=== PATIENT | female | born 1970 | race Hispanic/Latino ===

== ENCOUNTER 2018-10-22 01:23 | Emergency (ER) | payer BC ==
--- OUTSIDE RECORDS SUMMARY | 2018-10-22 01:25 | XMS REPORT ---
:1970 [facility] Address [address] [place] [address] Care Team Providers Name Role Phone Unavailable Unavailable Unavailable Payers Payer Name Policy Type Policy Number Effective Date Expiration Date Problems This patient has no known problems. Allergies, Adverse Reactions, Alerts Allergy Name Allergy Status Severity Reaction(s) Onset Inactive Treating Comments Type Date Date Clinician hydrocodone DA Active U 2018-05 00:00:0 0 meperidine DA Active U 2018-05 00:00:0 0 Medications This patient has no known medications.
[2018-10-22] MEDS ORDERED: LIDOCAINE JELLY 2%- 5 ML TUBE ONE (02:11)
[2018-10-22] MEDS ORDERED: HYDROMORPHONE HCL 1 MG/ML INJ ONE (02:22)
[2018-10-22 02:52] LABS: Absolute Lymphocytes (CBC) 1.4 K/uL (0.7-4.9); Absolute Monocytes 0.7 K/uL (0.1-1.3); Absolute Neutrophil 7.3 K/uL (1.8-8.0); Basophils % 0.5 % (0-1.3); Eosinophils % 0.7 % (0-4.4); Hematocrit 35.7 % (36.0-45.0); Lymphocytes % 14.6 % (15.3-44.8); MPV 8.6 fL (7.6-11.3); Monocytes % 7.2 % (3.3-12.3); RBC Red Blood Cell Count 4.03 M/uL (3.86-4.86)
[2018-10-22] MEDS ORDERED: NA CHLORIDE 0.9% 1,000 ML ONE (02:52)
[2018-10-22 03:03] LABS: Potassium 3.7 mmol/L (3.5-5.1)
--- NOTE | 2018-10-22 03:15 | EDPHYS ---
Physician Documentation [facility] Name: Kelley Carlos Age: 48 yrs Sex: Female : 1970 Arrival Date: 10/22/2018 Time: 01:26 Bed 13 Private MD: Benji Bella H ED Physician Pramod Cochran HPI: 10/22 03:10 This 48 yrs old Female presents to ER via Ambulatory with complaints of gs Constipation, Rectal Bleeding. 03:10 The patient presents to the emergency department with pain in the rectal area, that is gs severe. Onset: The symptoms/episode began/occurred yesterday. Context: the patient has a known history of hemorrhoids, CONSTIPATION. Modifying factors: The symptoms are alleviated by nothing, The symptoms are aggravated by bowel movement. Associate signs and symptoms: Pertinent positives: lower GI bleeding, on toilet paper. The patient has experienced similar episodes in the past, a few times. Historical: - Allergies: 01:29 Demerol (Vomiting); jb4 01:29 [place] (Vomiting); jb4 - Home Meds: :29 Lorazepam Oral [Active]; jb4 - PMHx: 01:29 Anxiety; HYPOGLYCEMIA; TIA; jb4 - PSHx: :29 Cholecystectomy; left shoulder; gastric sleeve; jb4 - Immunization history:: Adult Immunizations up to date. - Social history:: Smoking status: Patient/guardian denies using tobacco, Patient/guardian denies using alcohol. - Ebola Screening: : No symptoms or risks identified at this time. ROS: 03:10 All other systems are negative. gs Exam: 03:10 Head/Face: Normocephalic, atraumatic. Eyes: Pupils equal round and reactive to light, gs extra-ocular motions intact. Lids and lashes normal. Conjunctiva and sclera are non-icteric and not injected. Cornea within normal limits. Periorbital areas with no swelling, redness, or edema. ENT: Nares patent. No nasal discharge, no septal abnormalities noted. Tympanic membranes are normal and external auditory canals are clear. Oropharynx with no redness, swelling, or masses, exudates, or evidence of obstruction, uvula midline. Mucous membranes moist. 03:10 Neck: Trachea midline, no thyromegaly or masses palpated, and no cervical lymphadenopathy. Supple, full range of motion without nuchal rigidity, or vertebral point tenderness. No Meningismus. Chest/axilla: Normal chest wall appearance and motion. Nontender with no deformity. No lesions are appreciated. Cardiovascular: Regular rate and rhythm with a normal S1 and S2. No gallops, murmurs, or rubs. Normal PMI, no JVD. No pulse deficits. Respiratory: Lungs have equal breath sounds bilaterally, clear to auscultation and percussion. No rales, rhonchi or wheezes noted. No increased work of breathing, no retractions or nasal flaring. Back: No spinal tenderness. No costovertebral tenderness. Full range of motion. Skin: Warm, dry with normal turgor. Normal color with no rashes, no lesions, and no evidence of cellulitis. MS/ Extremity: Pulses equal, no cyanosis. Neurovascular intact. Full, normal range of motion. Neuro: Awake and alert, GCS 15, oriented to person, place, time, and situation. Cranial nerves II-XII grossly intact. Motor strength 5/5 in all extremities. Sensory grossly intact. Cerebellar exam normal. Normal gait. 03:10 Constitutional: The patient appears alert, awake. 03:10 Constitutional: The patient appears uncomfortable. 03:10 Abdomen/GI: Palpation: abdomen is soft and non-tender, in all quadrants, Rectal exam: Stool: normal, hemorrhoid(s), external, with inflammation, with pain, without bleeding, fecal impaction, is not appreciated, the exam is chaperoned by the nurse. Vital Signs: 01:29 BP 141 / 96; Pulse 99; Resp 20; Temp 97.9(O); Pulse Ox 96% on R/A; Weight 82.1 kg (R); jb4 Height 5 ft. 3 in. (160.02 cm) (R); Pain 10/10; 02:58 BP 106 / 73; Pulse 83; Resp 16; Pulse Ox 95% on R/A; jb4 04:00 BP 114 / 75; Pulse 86; Resp 16; Pulse Ox 98% on R/A; jb4 01:29 Body Mass Index 32.06 (82.10 kg, 160.02 cm) jb4 MDM: 02:02 Patient medically screened. 03:10 Differential diagnosis: hemorrhoids. Data reviewed: vital signs, nurses notes. Counseling: I had a detailed discussion with the patient and/or guardian regarding: the historical points, exam findings, and any diagnostic results supporting the discharge/admit diagnosis, lab results, the need for outpatient follow up. Response to treatment: the patient's symptoms have markedly improved after treatment. 10/22 02:12 Order name: CBC with Diff; Complete Time: 03:09 10/22 02:12 Order name: Basic Metabolic Panel; Complete Time: 03:09 Administered Medications: 02:00 Drug: Lidocaine Gel 2 % 1 application {Note: administered rectally by ED physician.} jb4 Route: Mucous Membrane; 02:58 Follow up: Response: No adverse reaction; Pain is decreased jb4 02:18 Drug: Dilaudid 1 mg Route: IM; Site: right gluteus; jb4 02:57 Follow up: Response: No adverse reaction; Pain is decreased jb4 02:57 Drug: NS 0.9% 1000 ml Route: IV; Rate: 1 bolus; Site: right antecubital; jb4 04:05 Follow up: Response: No adverse reaction; IV Status: Completed infusion; IV Intake: jb4 1000ml Disposition: 10/22/18 03:14 Discharged to Home. Impression: Constipation, Perianal venous thrombosis. - Condition is Stable. - Discharge Instructions: Hemorrhoids, Constipation, Adult, [id number]. - Prescriptions for lidocaine HCl- hydrocortison ac 3 %-2.5 % (7 gram) Rectal gel - insert 1 applicatorful by RECTAL route 2 times per day As needed; 14 suppository. Miralax 17 gram/dose Oral - take 1 packet by ORAL route once daily dilute powder in 8 ounces of water or juice; 1 bottle. - Medication Reconciliation Form, Thank You Letter, Antibiotic Education, Prescription Opioid Use form. - Follow up: Private Physician; When: 1 - 2 days; Reason: Re-evaluation by your physician. Signatures: Dispatcher [employer] Saúl Guallpa RN RN jb4 Pramod Cochran MD MD Corrections: (The following items were deleted from the chart) 04:17 03:14 10/22/2018 03:14 Discharged to Home. Impression: Constipation; Perianal venous jb4 thrombosis. Condition is Stable. Forms are Medication Reconciliation Form, Thank You Letter, Antibiotic Education, Prescription Opioid Use. Follow up: Private Physician; When: 1 - 2 days; Reason: Re-evaluation by your physician. gs
--- NOTE | 2018-10-22 03:15 | ER ---
Nurse's Notes [facility] Name: Kelley Carlos Age: 48 yrs Sex: Female : 1970 Arrival Date: 10/22/2018 Time: : Bed 13 Private MD: Benji Bella H Diagnosis: Constipation;Perianal venous thrombosis Presentation: 10/22 01:29 Presenting complaint: Patient states: I have been severely constipated for the past 2 jb4 days, and now I am having rectal bleeding from straining and attempting to self disimpact, and I am having severe rectal pain. : Transition of care: patient was not received from another setting of care. Onset of jb4 symptoms was October 19, 2018. Risk Assessment: Do you want to hurt yourself or someone else? Patient reports no desire to harm self or others. Initial Sepsis Screen: Does the patient meet any 2 criteria? HR > 90 bpm. Yes Does the patient have a suspected source of infection? No. Patient's initial sepsis screen is negative. Care prior to arrival: None. Method Of Arrival: Ambulatory jb4 : Acuity: DRAKE 3 jb4 Triage Assessment: : General: Appears distressed, uncomfortable, Behavior is cooperative, anxious. Pain: jb4 Complains of pain in rectal. Pain does not radiate. Pain currently is 10 out of 10 on a pain scale. Quality of pain is described as Intense, severe Pain began 2-3 days ago. Is continuous. EENT: No signs and/or symptoms were reported regarding the EENT system. Neuro: Level of Consciousness is awake, alert, obeys commands, Oriented to person, place, time, situation. Cardiovascular: Patient's skin is warm and dry. Respiratory: Airway is patent Respiratory effort is even, unlabored, shallow, Respiratory pattern is regular, symmetrical. GI: Reports constipation, rectal bleeding. Patient currently denies abdominal pain, epigastric pain, nausea, vomiting. : No signs and/or symptoms were reported regarding the genitourinary system. Derm: Skin is intact, Skin is dry, Skin is pale, Skin temperature is warm. Musculoskeletal: Circulation, motion, and sensation intact. Historical: - Allergies: Demerol (Vomiting); jb4 [place] (Vomiting); jb4 - Home Meds: : Lorazepam Oral [Active]; 4 - PMHx: : Anxiety; HYPOGLYCEMIA; TIA; 4 - PSHx: : Cholecystectomy; left shoulder; gastric sleeve; jb4 - Immunization history:: Adult Immunizations up to date. - Social history:: Smoking status: Patient/guardian denies using tobacco, Patient/guardian denies using alcohol. - Ebola Screening: : No symptoms or risks identified at this time. Screenin:29 Abuse screen: Denies threats or abuse. Nutritional screening: No deficits noted. [facility] Tuberculosis screening: No symptoms or risk factors identified. Fall Risk Ambulatory Aid- Crutches/Cane/Walker (15 pts). Total Irby Fall Scale indicates No Risk (0-24 pts). Assessment: : General: see triage assessment.. jb4 02:58 Reassessment: Patient appears in no apparent distress at this time. Patient and/or jb4 family updated on plan of care and expected duration. Pain level reassessed. Patient is alert, oriented x 3, equal unlabored respirations, skin warm/dry/pink. Patient states feeling better. 03:31 Reassessment: Waiting for IV fluids to finish prior to discharge. jb4 04:12 Reassessment: Patient appears in no apparent distress at this time. Patient and/or jb4 family updated on plan of care and expected duration. Pain level reassessed. Patient is alert, oriented x 3, equal unlabored respirations, skin warm/dry/pink. PT discharged home with . No s/s of distress noted. Pt wheeled to car in wheel chair. Vital Signs: :29 BP 141 / 96; Pulse 99; Resp 20; Temp 97.9(O); Pulse Ox 96% on R/A; Weight 82.1 kg (R); jb4 Height 5 ft. 3 in. (160.02 cm) (R); Pain 10/10; 02:58 BP 106 / 73; Pulse 83; Resp 16; Pulse Ox 95% on R/A; jb4 04:00 BP 114 / 75; Pulse 86; Resp 16; Pulse Ox 98% on R/A; jb4 01:29 Body Mass Index 32.06 (82.10 kg, 160.02 cm) [facility] ED Course: :26 Patient arrived in ED. es 01:26 Jena YaseminDO Aruna is Private Physician. es 01:29 Arm band placed on left wrist. jb4 01:29 Patient has correct armband on for positive identification. Placed in gown. Bed in low jb4 position. Call light in reach. Side rails up X 1. Pulse ox on. NIBP on. 01:37 Saúl Simental, GRICELDA is Primary Nurse. jb4 01:39 Triage completed. jb4 02:02 Pramod Cochran MD is Attending Physician. gs 02:28 Missed attempt(s): 20 gauge in right antecubital area. 22 gauge in right antecubital jb4 area. 02:30 Initial lab(s) drawn, by me, sent to lab. Inserted saline lock: 20 gauge in left jb4 antecubital area, using aseptic technique. Blood collected. 02:38 IV discontinued, intact, bleeding controlled. jb4 02:42 Inserted saline lock: 20 gauge in right antecubital area, using aseptic technique. jb4 04:00 No provider procedures requiring assistance completed. IV discontinued, intact, jb4 bleeding controlled. Administered Medications: 02:00 Drug: Lidocaine Gel 2 % 1 application {Note: administered rectally by ED physician.} jb4 Route: Mucous Membrane; 02:58 Follow up: Response: No adverse reaction; Pain is decreased jb4 02:18 Drug: Dilaudid 1 mg Route: IM; Site: right gluteus; jb4 02:57 Follow up: Response: No adverse reaction; Pain is decreased jb4 02:57 Drug: NS 0.9% 1000 ml Route: IV; Rate: 1 bolus; Site: right antecubital; jb4 04:05 Follow up: Response: No adverse reaction; IV Status: Completed infusion; IV Intake: jb4 1000ml Intake: 04:05 IV: 1000ml; Total: 1000ml. jb4 Outcome: 03:14 Discharge ordered by . gs 04:16 Discharged to home via wheelchair, with significant other. jb4 04:16 Condition: stable 04:16 Discharge instructions given to patient, significant other, Instructed on discharge instructions, follow up and referral plans. medication usage, Demonstrated understanding of instructions, follow-up care, medications, Prescriptions given X 2. 04:17 Patient left the ED. jb4 Signatures: Violette Juarez James, RN RN jb4 Pramod Cochran MD MD gs Corrections: (The following items were deleted from the chart) 02: 01:29 Respiratory: Airway is patent Respiratory effort is even, unlabored, Respiratory jb4 pattern is regular, symmetrical, jb4 02: 01:29 Derm: Skin is intact, Skin is pink, warm \T\ dry. jb4 jb4
[2018-10-22 04:23] VITALS: TEMP 97.9
[2018-10-22 04:26] VITALS: BP 114/75; O2SAT 98
== END 2018-10-22 04:17 | disposition home or self-care (01) ==
LOC: ER 01:23
DX: K59.00 Constipation, unspecified (principal); K64.5 Perianal venous thrombosis; F41.9 Anxiety disorder, unspecified; Z88.5 Allergy status to narcotic agent
CPT/HCPCS: 36415; 80048; 85025; 96360; 96372; 99284; J1170; J7030

== ENCOUNTER 2019-11-08 19:49 | Emergency (ER) | payer BC ==
--- OUTSIDE RECORDS SUMMARY | 2019-11-08 19:52 | XMS REPORT | Summary of Care ---
:1970 Author Organization [facility] Address [address] [place] [id number] Care Team Providers Name Role Phone Pcp, Patient Does Not Have A Primary Care Provider +[id number] 0-0000 Reason for Visit Reason Comments Cough 3 days Congestion 3 days Sore Throat 3 days Ear Pain right ear pain Headache started today Fever started today Encounter Details Date Type Department Care Team Description 08/29/2019 Urgent Care [facility] Unknown, Attending U RI with cough and congestion (Primary Dx); Urgent Care Jerald Sandy MD [address] [place] [address] [id number] Fever, unspecified fever cause [address] [facility] Sixto Pacheco Zuleica, MD [address] [place] [address]. [place] [address] [address] [place] [id number] Allergies Active Allergy Reactions Severity Noted Date Comments Meperidine Hcl Nausea and/or Vomiting 08/29/2019 Hydrocodone-Acetaminophen Nausea and/or Vomiting 08/29 documented as of this encounter (statuses as of 08/29/2019) Medications Medication Sig Dispensed Refills Start Date End Date Status LORazepam 1 mg tablet TAKE 1 1 1/2 0 08/16/2019 Active TABLET BY MOUTH ONCE A DAY NEEDED fluticasone propionate Use 2 Sprays in 16 g 0 08/29/2019 Active 50 mcg/actuation nasal each nostril sprayIndications: URI daily. with cough and congestion brompheniramine-pseudo Take 5 mL by 237 mL 0 08/29/2019 Active ephedrine-dextromethor mouth every 6 howard 1-15-5 mg/5 mL (six) hours as elixerIndications: URI needed for with cough and Congestion/Allerg congestion ies. benzonatate (TESSALON Take 1 capsule by 30 capsule 0 0 Active PERLES) 100 mg mouth 3 (three) capsuleIndications: times daily as URI with cough and needed for Cough. congestion documented as of this encounter (statuses as of 08/29/2019) Active Problems No known active problemsdocumented as of this encounter (statuses as of 08/29/2019) Social History Tobacco Use Types Packs/Day Years Used Date Never Smoker Smokeless Tobacco: Never Used Sex Assigned at Date Recorded Not on file Job Start Date Occupation Industry Not on file Not on file Not on file Travel History Travel Start Travel End No recent travel history available. documented as of this encounter Last Filed Vital Signs Vital Sign Reading Time Taken Comments Blood Pressure 110/75 08/29/2019 7:09 PM [employer] Pulse 65 08/29/2019 7:09 PM [employer] Temperature 36.6 C (97.8 F) 08/29/2019 7:09 PM [employer] Respiratory Rate 17 08/29/2019 7:09 PM [employer] Oxygen Saturation 99% 08/29/2019 7:09 PM [employer] Inhaled Oxygen Concentration - - Weight 80.1 kg (176 lb 9.6 oz) 08/29/2019 7:09 PM [employer] Height 160 cm (5' 3") 08/29/2019 7:09 PM [employer] Body Mass Index 31.28 08/29/2019 7:09 PM [employer] documented in this encounter Patient Instructions Patient InstructionsRima Sunshine MD - 08/29/2019 7:00 PM [employer] Viral Upper Respiratory Illness (Adult) You have a viral upper respiratory illness (URI), which is another term for the common cold. This illness is contagious during the first few days. It is spread through the air by coughing and sneezing.It may also be spread by direct contact (touching the sick person and then touching your own eyes, nose, or mouth). Frequent handwashing will decrease risk of spread. Most viral illnesses go away within 7 to 10 days with rest and simple home remedies. Sometimes the illness may last for several weeks. Antibiotics will not kill a virus, and they are generally not prescribed for this condition. Home care If symptoms are severe, rest at home for the first 2 to 3 days. When you resume activity, don't let yourself get too tired. Don't smoke. If you need help stopping, talk with your healthcare provider. Avoid being exposed to cigarette smoke (yours or others). You may use acetaminophen or ibuprofen to control pain and fever, unless another medicine was prescribed.If you have chronic liver or kidney disease, have ever had a stomach ulcer or gastrointestinal bleeding, or are taking blood- thinning medicines, talk with your healthcare provider before usingthese medicines. Aspirin should never be given to anyone under 18 years of age who is ill with a viral infection or fever. It may cause severe liver or brain damage. Your appetite may be poor, so a light diet is fine. Stay well hydrated by drinking 6 to 8 glassesof fluids per day (water, soft drinks, juices, tea, or soup). Extra fluids will help loosen secretions in the nose and lungs. Oxor-kmx-ottoeiu cold medicines will not shorten the length of time youre sick, but they may be helpful for the following symptoms: cough, sore throat, and nasal and sinus congestion. If you takeprescription medicines, ask your healthcare provider or pharmacist which ccni-tef-ubqbdkl medicines are safe to use. (Note: Don't use decongestants if you have high blood pressure.) Follow-up care Follow up with your healthcare provider, or as advised. When to seek medical advice Call your healthcare provider right away if any of these occur: Cough with lots of colored sputum (mucus) Severe headache; face, neck, or ear pain Difficultyswallowingdue to throat pain Fever of 100.4F (38C) or higher, or as directed by your healthcare provider Call 911 Call 911 if any of these occur: Chest pain, shortness of breath, wheezing, or difficulty breathing Coughing up blood Very severe pain with swallowing, especially if it goes along with a muffled voice Bhakti last reviewed this educational content on 12/01/201719991517-5381 [employer]. [address] [place] [address], [place] [address]. All rights reserved. This information is not intended as a substitute for professional medical care. Always follow your healthcare professional's instructions. [employer] documented in this encounter Progress Notes Rima Sunshine MD - 08/29/2019 7:00 PM CST Urgent Care Clinic Note Chief Complaint Patient presents with Cough 3 days Congestion 3 days Sore Throat 3 days Ear Pain right ear pain Headache started today Fever started today The patient is presenting to urgent care reporting several days with sneezing and runny nose. Then cough, body aches, phlegm, headache and ear ache (fullness). 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 Symptoms began 3 days ago. Additional symptoms include sinus headache and earache are theworst. The patient has attempted treatment with lemonade, Nyquil and ibuprofen. Also Vicks nasal andcough drops. Active Ambulatory Problems Diagnosis Date Noted No Active Ambulatory Problems Resolved Ambulatory Problems Diagnosis Date Noted No Resolved Ambulatory Problems No Additional Past Medical History History reviewed. No pertinent surgical history. Review of Systems Constitutional: negative for - fever, - chills, - weight changes ENT: for + hearing changes, + nasal congestion, + sore throat, + cough Cardiovascular: negative for - chest pain, - palpitations Respiratory: negative for - shortness of breath, - dyspnea on exertion Gastrointestinal: negative for - changes in bowel habits, - abdominal pain, - nausea, - vomiting Musculoskeletal: negative for - back pain, - joint pain, - muscle pain Skin: negative for - skin changes Neurological: negative for - weakness, - tingling, - changes in mentation Psychiatric: negative for depression, - anxiety Physical Exam Vitals: 08/29/19 1909 BP: 110/75 Pulse: 65 Resp: 17 Temp: 36.6 C (97.8 F) TempSrc: Oral SpO2: 99% Weight: 176 lb 9.6 oz (80.1 kg) Height: 5' 3" (1.6 m) General: alert and oriented, no apparent distress HEENT: white sclera, eye movements grossly intact, oropharynx is erythematous with no exudate nor tonsillar enlargement. There is clear nasal drainage. No erythema nor edema of the nasal turbinates. Nofacial tenderness. BL TM with clear effusion, no sign of AOM. Neck: supple, anterior cervical LAD present BL Lungs: clear to auscultation in all rodríguez bilaterally, unlabored breathing Cardio: regular rate and rhythm, no murmurs or rubs Abdomen: soft, non-tender, no masses palpated, positive bowel sounds Extremities: no clubbing, cyanosis, or edema Skin: no rashes or lesions, good turgor Neuro: cranial nerves II through XII grossly intact; sensation grossly intact Review of Labs: 08/29/2019 19:40 POCT INFLUENZA A negative POCT INFLUENZA B negative Assessment/Plan: 1. Fever, unspecified fever cause Flu was negative. - POCT FLU A AND B (MOLECULAR) 2. URI with cough and congestion HPI and PE consistent with viral URI. Will treat symptomatically. Instruction on when to RTC or go to ER were given. - fluticasone propionate 50 mcg/actuation nasal spray; Use 2 Sprays in each nostril daily. Dispense: 16 g; Refill: 0 - uexwvcsgbfaqbuh-loeanllvkwzxdux-wucxljwbrjdqbqdi 1-15-5 mg/5 mL elixer; Take 5 mL by mouth every 6(six) hours as needed for Congestion/Allergies. Dispense: 237 mL; Refill: 0 - benzonatate (TESSALON PERLES) 100 mg capsule; Take 1 capsule by mouth 3 (three) times daily as needed for Cough. Dispense: 30 capsule; Refill: 0 Plan discussed with patient. The patient understands medications, there are barriers for compliance, there are side effects, and medications reconciled. Current medications are effective. Counseled patient about appropriate healthy behaviors and home self management. Patient able to explain back the plan and is provided a printed after visit summary (AVS) documenting the visit, pertinent patient instructions and follow-up recommendations. --------- Rima Milan MD 08/29/2019 7:28 PM documented in this encounter Plan of Treatment Health Maintenance Due Date Last Done Comments DTaP,Tdap,and Td Vaccines (1 - 1979 Tdap) PAP SMEAR 1989 Breast Cancer Screening 2008 (MAMMOGRAM) COLONOSCOPY 2018 Zoster Recombinant Vaccine 2018 (SHINGRIX) (1 of 2) INFLUENZA VACCINE (#1) 2019 PNEUMOCOCCAL 0-64 YEARS COMBINED Aged Out No longer eligible based on SERIES patient's age to complete this topic documented as of this encounter Procedures Procedure Name Priority Date/Time Associated Diagnosis Comme nts POCT FLU A AND B Routine 08/29/2019 7:40 PM Fever, unspecifie d Results for this (MOLECULAR) [employer] fever cause procedure are i n the results section. documented in this encounter Results POCT FLU A AND B (MOLECULAR) (08/29/2019 7:40 PM [employer]) Pathologist Sig nature POCT INFLUENZA A negative Negative - Negative POCT INFLUENZA B negative Negative - Negative Specimen Swab documented in this encounter Visit Diagnoses Diagnosis URI with cough and congestion - Primary Fever, unspecified fever cause documented in this encounter Insurance Payer Benefit Plan Subscriber ID Effective Dates Phone Address Type / Group [facility] [id number] 2016-Vinny [phone] [address] [place] PPO/POS [place] - OUT OF 7 [id number] [place] [address] documented as of this encounter
--- OUTSIDE RECORDS SUMMARY | 2019-11-08 19:52 | XMS REPORT ---
:1970 Author Organization [facility] t Address [address] [place] [address] Care Team Providers Name Role Phone Unavailable Unavailable Unavailable Payers Payer Name Policy Type Policy Number Effective Date Expiration D ate Problems This patient has no known problems. Allergies, Adverse Reactions, Alerts Allergy Name Allergy Status Severity Reaction(s) Onset Inactive Treat ing Comments Type Date Date Clinician hydrocodone DA Active U 2018-05 00:00:0 0 meperidine DA Active U 2018-05 00:00:0 0 Medications This patient has no known medications.
[2019-11-08 20:57] LABS: Urine Blood TRACE (NEG); Urine Glucose NEGATIVE (NEG); Urine Protein NEGATIVE (NEG)
[2019-11-08 21:03] LABS: Urine Bacteria <20 /HPF (<20); Urine Culture Reflex Order REFLEXED
[2019-11-08 21:05] LABS: ALT/SGPT 21 U/L (12-78); AST/SGOT 14 U/L (15-37); Albumin 4.1 g/dL (3.4-5.0); Alkaline Phosphatase 84 U/L (45-117); BUN Blood Urea Nitrogen 13 mg/dL (7-18); Bicarbonate 28 mmol/L (21-32); Bilirubin Direct < 0.1 mg/dL (0-0.2); Bilirubin Total 0.2 mg/dL (0.2-1.0); Glucose Level 87 mg/dL (74-106); Lipase 108 U/L (73-393); Potassium 3.8 mmol/L (3.5-5.1); Protein, Total 7.9 g/dL (6.4-8.2); Sodium Level 142 mmol/L (136-145)
[2019-11-08 21:12] LABS: Absolute Lymphocytes (CBC) 3.5 K/uL (0.7-4.9); Basophils % 0.5 % (0-1.3); Hematocrit 38.9 % (36.0-45.0); Lymphocytes % 46.9 % (15.3-44.8); MPV 8.3 fL (7.6-11.3); RBC Red Blood Cell Count 4.31 M/uL (3.86-4.86)
[2019-11-08] MEDS ORDERED: ONDANSETRON 4 MG/2 ML VIAL ONE (21:15)
[2019-11-08] MEDS ORDERED: FENTANYL CITR 100 MCG/2 ML ONE ×2 (21:15→23:35)
[2019-11-08] MEDS ORDERED: NA CHLORIDE 0.9% 1,000 ML ONE (21:16)
[2019-11-08] MEDS ORDERED: CIPROFLOXACIN HCL 500 MG TAB ONE (22:48)
[2019-11-08] MEDS ORDERED: DICYCLOMINE HCL 10 MG CAP ONE (22:49)
[2019-11-08] MEDS ORDERED: METRONIDAZOLE 500mg IVPB 500 MG/100 ML BAG IV ONE (22:49)
--- NOTE | 2019-11-09 01:47 | EDPHYS ---
Physician Documentation [facility] Name: Kelley Carlos Age: 49 yrs Sex: Female : 1970 Arrival Date: 11/08/2019 Time: 19:53 Bed 16 Private MD: ED Physician Sen Hunter HPI: 11/07 20:40 This 49 yrs old Female presents to ER via Ambulatory with complaints of cp Abdominal Pain. 20:40 The patient presents with abdominal pain right side of abdomen. cp 20:40 Onset: The symptoms/episode began/occurred 4 day(s) ago. cp 20:40 The symptoms radiate to right back. Associated signs and symptoms: Pertinent positives: cp loose stools, Pertinent negatives: blood in stools, constipation, fever, vomiting. The symptoms are described as sharp. Modifying factors: the symptoms are aggravated by pressure. 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 cp 21:00 Eyes: Negative for injury, pain, redness, and discharge. cp 21:00 ENT: Negative for drainage from ear(s), ear pain, sore throat, difficulty swallowing, difficulty handling secretions. 21:00 Cardiovascular: Negative for chest pain, palpitations. 21:00 Respiratory: Negative for cough, shortness of breath, wheezing. 21:00 Abdomen/GI: Positive for abdominal pain, of the right upper quadrant and right lower quadrant, loose stools, Negative for vomiting. 21:00 Back: Positive for flank pain, on the right. 21:00 : Positive for foul smelling urine. 21:00 Skin: Negative for rash. 21:00 Neuro: Negative for altered mental status, headache, weakness. 21:00 All other systems are negative. Exam: 21:05 Constitutional: The patient appears in no acute distress, alert, awake, non-toxic, well cp developed, well nourished, uncomfortable. 21:05 Head/Face: Normocephalic, atraumatic. cp 21:05 Eyes: Periorbital structures: appear normal, Conjunctiva: normal, no exudate, no injection, Sclera: no appreciated abnormality, Lids and lashes: appear normal, bilaterally. 21:05 ENT: External ear(s): are unremarkable, Nose: is normal, Mouth: is normal, Posterior pharynx: is normal, airway is patent, no erythema, no exudate. 21:05 Chest/axilla: Inspection: normal, Palpation: is normal, no crepitus, no tenderness. 21:05 Cardiovascular: Rate: normal, Rhythm: regular. 21:05 Respiratory: the patient does not display signs of respiratory distress, Respirations: normal, no use of accessory muscles, no retractions, labored breathing, is not present, Breath sounds: are clear throughout, no decreased breath sounds, no stridor, no wheezing. 21:05 Abdomen/GI: Inspection: abdomen appears normal, Bowel sounds: active, all quadrants, Palpation: soft, in all quadrants, moderate abdominal tenderness, in the right upper quadrant and right lower quadrant. 21:05 Back: pain, that is mild, of the right mid back, ROM is normal. Vital Signs: 20:00 BP 102 / 73; Pulse 73; Resp 20; Temp 99.2; Pulse Ox 98% on R/A; Weight 79.38 kg (R); dm5 Height 5 ft. 3 in. (160.02 cm); Pain 10/10; 21:30 BP 102 / 58; Pulse 57; Resp 16; Pulse Ox 100% on R/A; jb4 22:00 BP 102 / 65; Pulse 58; Resp 16; Pulse Ox 99% on R/A; jb4 23:00 BP 100 / 73; Pulse 64; Resp 16; Pulse Ox 100% on R/A; jb4 23:30 BP 108 / 64; Pulse 52; Resp 16; Pulse Ox 100% on R/A; jb4 0509 00:15 Pain 7/10; jb4 01:00 BP 99 / 63; Pulse 60; Resp 16; Pulse Ox 100% on R/A; jb4 11/07 20:00 Body Mass Index 31.00 (79.38 kg, 160.02 cm) dm5 MDM: 11/07 20:39 Patient medically screened. cp 21:00 Differential diagnosis: appendicitis, bowel obstruction, Herpes Zoster, Pyelonephritis, cp Ureterolithiasis, urinary tract infection, choledocholithiasis. 11/07 20:34 Order name: Basic Metabolic Panel; Complete Time: 21:24 [facility] 11/07 21:24 Interpretation: Normal except: CL 108; GFR 76. cp 11/07 20:34 Order name: CBC with Diff; Complete Time: 21:24 [facility] 11/07 21:25 Interpretation: Normal except: LYM% 46.9. cp 11/07 20:34 Order name: Creatinine for Radiology; Complete Time: 21:24 [facility] 11/07 20:34 Order name: Hepatic Function; Complete Time: 21:24 [facility] 11/07 22:06 Interpretation: Normal except: AST 14; GLOB 3.8. 11/07 20:34 Order name: Lipase; Complete Time: 21:24 [facility] 11/07 20:39 Order name: Urine Microscopic Only; Complete Time: 21:24 11/07 22:35 Interpretation: Normal except: UWBC 5-10; URBC 5-10. 11/07 20:51 Order name: Urine Dipstick--Ancillary (enter results); Complete Time: 21:24 [facility] 11/07 20:51 Order name: Urine --Ancillary (enter results); Complete Time: 21:24 [facility] 11/07 20:51 Order name: CT Stone Protocol 11/07 21:04 Order name: Urine Culture [facility] 11/07 22:48 Order name: CT Abd/Pelvis - PO and IV Contrast 11/07 20:34 Order name: IV Saline Lock; Complete Time: 20:34 [facility] 11/07 20:34 Order name: Labs collected and sent; Complete Time: 20:34 [facility] 11/07 20:39 Order name: Urine Test (obtain specimen); Complete Time: 20:59 cp 11/07 20:39 Order name: Urine Dipstick-Ancillary (obtain specimen); Complete Time: 20:59 cp Administered Medications: 21:33 Drug: Zofran (Ondansetron) 4 mg Route: IVP; Site: left antecubital; jb4 22:30 Follow up: Response: No adverse reaction; Nausea is decreased [facility] 21:35 Drug: NS 0.9% 1000 ml Route: IV; Rate: 1 bolus; Site: left antecubital; jb4 22:35 Follow up: Response: No adverse reaction; IV Status: Completed infusion; IV Intake: jb4 1000ml 21:35 Drug: fentaNYL (PF) 25 mcg {Note: Rass score 0.} Route: IVP; Site: left antecubital; jb4 22:00 Follow up: Response: No adverse reaction; Pain is decreased; RASS: Alert and Calm (0) jb4 22:48 Drug: metroNIDAZOLE 500 mg Volume: 100 ml; Route: IVPB; Infused Over: 30 mins; Site: [facility] left antecubital; 23:18 Follow up: Response: No adverse reaction; IV Status: Completed infusion jb4 22:48 Drug: Ciprofloxacin 500 mg Route: PO; jb4 23:23 Follow up: Response: No adverse reaction jb4 22:49 Drug: Bentyl 20 mg Route: PO; jb4 23:24 Follow up: Response: No adverse reaction jb4 23:38 Drug: fentaNYL (PF) 25 mcg {Note: Rass score 0.} Route: IVP; Site: left antecubital; 4 11/08 00:00 Follow up: Response: No adverse reaction; Pain is decreased 4 Disposition: 01:45 Co-signature as Attending Physician, Sen Hunter MD. pkl Disposition: 11/09/19 01:51 Discharged to Home. Impression: Abdominal pain. Urinary tract infection. - Condition is Stable. - Prescriptions for Zofran 4 mg Oral Tablet - take 1 tablet by ORAL route every 12 hours As needed; 6 tablet. Cipro 500 mg Oral Tablet - take 1 tablet by ORAL route every 12 hours for 7 days; 14 tablet. - Medication Reconciliation Form, Thank You Letter, Antibiotic Education, Prescription Opioid Use form. - Follow up: Private Physician; When: 2 - 3 days; Reason: Re-evaluation by your physician. Signatures: [facility] She Crawford RN RN dm5 Sen Hunter MD MD pkl John Sánchez PA PA cp Bryson, James, RN RN jb4 Corrections: (The following items were deleted from the chart) 01:48 01:47 11/09/2019 01:47 Discharged to Home. Impression: Abdominal pain. Urinary tract pkl infection. Condition is Stable. Prescriptions for Zofran 4 mg Oral Tablet - take 1 tablet by ORAL route every 12 hours As needed; 20 tablet, Cipro 500 mg Oral Tablet - take 1 tablet by ORAL route every 12 hours for 10 days; 20 tablet, Metronidazole 500 mg Oral Tablet - take 1 tablet by ORAL route every 8 hours; 30 tablet. and Forms are Medication Reconciliation Form, Thank You Letter, Antibiotic Education, Prescription Opioid Use. Follow up: Private Physician; When: 2 - 3 days; Reason: Re-evaluation by your physician. Problem is new. Symptoms have improved. pkl 02:14 01:51 11/09/2019 01:51 Discharged to Home. Impression: Abdominal pain. Urinary tract jb4 infection. Condition is Stable. Prescriptions for Zofran 4 mg Oral Tablet - take 1 tablet by ORAL route every 12 hours As needed; 20 tablet, Cipro 500 mg Oral Tablet - take 1 tablet by ORAL route every 12 hours for 10 days; 20 tablet, Metronidazole 500 mg Oral Tablet - take 1 tablet by ORAL route every 8 hours; 30 tablet. and Forms are Medication Reconciliation Form, Thank You Letter, Antibiotic Education, Prescription Opioid Use. Follow up: Private Physician; When: 2 - 3 days; Reason: Re-evaluation by your physician. pkl
--- NOTE | 2019-11-09 01:47 | ER ---
Nurse's Notes [facility] Name: Kelley Carlos Age: 49 yrs Sex: Female : 1970 Arrival Date: 11/08/2019 Time: 19:53 Bed 16 Private MD: Diagnosis: Abdominal pain. Urinary tract infection Presentation: 11/07 20:00 Chief complaint: Patient states: abdominal pain for 4 days. seen by Jena yesterday. dm5 Worse today and Bella said to come to the ED. Pain in RLQ that now goes to back. Pt reports diarrhea (2 loose BM today). Coronavirus screen: Patient denies a cough. Patient denies shortness of breath or difficulty breathing. Patient denies measured and/or subjective temperature greater than 100.4F prior to today's visit. Patient denies travel on a cruise ship or to a country the [facility] currently lists as an affected area. Patient denies contact with known and/or suspected case of COVID-19. Ebola Screen: Patient negative for fever greater than or equal to 101.5 degrees Fahrenheit, and additional compatible Ebola Virus Disease symptoms Patient denies exposure to infectious person. Patient denies travel to an Ebola-affected area in the 21 days before illness onset. No symptoms or risks identified at this time. Initial Sepsis Screen: Does the patient meet any 2 criteria? No. Patient's initial sepsis screen is negative. Does the patient have a suspected source of infection? Yes: Acute abdominal pain. Risk Assessment: Do you want to hurt yourself or someone else? Patient reports no desire to harm self or others. Onset of symptoms was November 04, 2019. 20:00 Method Of Arrival: Ambulatory dm5 20:00 Acuity: DRAKE 3 dm5 Triage Assessment: 20:04 General: Appears in no apparent distress. Behavior is calm, cooperative. Pain: dm5 Complains of pain in posterior aspect of right lateral abdomen and right lower quadrant Pain radiates to right leg Pain currently is 10 out of 10 on a pain scale. Pain: Quality of pain is described as sharp. Neuro: Level of Consciousness is awake, alert, obeys commands, Oriented to person, place, time, situation. GI: Reports lower abdominal pain, diarrhea. Derm: Skin is pink, warm \T\ dry. 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 Nutritional screening: No deficits noted. jb4 Tuberculosis screening: No symptoms or risk factors identified. Fall Risk None identified. Assessment: 20:15 General: Appears in no apparent distress. comfortable, Behavior is calm, cooperative, jb4 appropriate for age. Pain: Complains of pain in right lower quadrant Pain radiates to right low back Pain currently is 6 out of 10 on a pain scale. Quality of pain is described as stabbing. Neuro: Level of Consciousness is awake, alert, obeys commands, Oriented to person, place, time, situation. Cardiovascular: Patient's skin is warm and dry. Respiratory: Airway is patent Respiratory effort is even, unlabored, Respiratory pattern is regular, symmetrical. GI: Abdomen is flat, Bowel sounds present X 4 quads. Abd is soft and non tender X 4 quads. Reports lower abdominal pain, diarrhea. : Reports Foul odor with urination. EENT: No signs and/or symptoms were reported regarding the EENT system. Derm: Skin is intact, Skin is pink, warm \T\ dry. Musculoskeletal: Circulation, motion, and sensation intact. Range of motion: intact in all extremities. 21:15 Reassessment: Patient appears in no apparent distress at this time. Patient and/or jb4 family updated on plan of care and expected duration. Pain level reassessed. Patient is alert, oriented x 3, equal unlabored respirations, skin warm/dry/pink. 22:15 Reassessment: Patient appears in no apparent distress at this time. Patient and/or jb4 family updated on plan of care and expected duration. Pain level reassessed. Patient is alert, oriented x 3, equal unlabored respirations, skin warm/dry/pink. Patient states feeling better. 23:15 Reassessment: Patient appears in no apparent distress at this time. Patient and/or jb4 family updated on plan of care and expected duration. Pain level reassessed. Patient is alert, oriented x 3, equal unlabored respirations, skin warm/dry/pink. 23:54 Reassessment: Patient appears in no apparent distress at this time. Patient and/or jb4 family updated on plan of care and expected duration. Pain level reassessed. Patient is alert, oriented x 3, equal unlabored respirations, skin warm/dry/pink. Ct notified pt finished oral contrast at 2340. 11/08 00:15 Reassessment: Pt report pain has decreased to 6/10 and is tolerable. jb4 00:57 Reassessment: Patient appears in no apparent distress at this time. Patient and/or jb4 family updated on plan of care and expected duration. Pain level reassessed. Patient is alert, oriented x 3, equal unlabored respirations, skin warm/dry/pink. PT back from CT. 02:09 Reassessment: Patient appears in no apparent distress at this time. Patient and/or jb4 family updated on plan of care and expected duration. Pain level reassessed. Patient is alert, oriented x 3, equal unlabored respirations, skin warm/dry/pink. PT verbalize understanding of d/c and follow up instructions. Denies questions or concerns. Patient states feeling better. Vital Signs: 11/07 20:00 BP 102 / 73; Pulse 73; Resp 20; Temp 99.2; Pulse Ox 98% on R/A; Weight 79.38 kg (R); dm5 Height 5 ft. 3 in. (160.02 cm); Pain 10/10; 21:30 BP 102 / 58; Pulse 57; Resp 16; Pulse Ox 100% on R/A; jb4 22:00 BP 102 / 65; Pulse 58; Resp 16; Pulse Ox 99% on R/A; jb4 23:00 BP 100 / 73; Pulse 64; Resp 16; Pulse Ox 100% on R/A; jb4 23:30 BP 108 / 64; Pulse 52; Resp 16; Pulse Ox 100% on R/A; jb4 11/08 00:15 Pain 7/10; jb4 01:00 BP 99 / 63; Pulse 60; Resp 16; Pulse Ox 100% on R/A; jb4 11/07 20:00 Body Mass Index 31.00 (79.38 kg, 160.02 cm) dm5 ED Course: 11/07 19:53 Patient arrived in ED. bp1 20:03 Triage completed. dm5 20:04 Arm band placed on left wrist. dm5 20:08 Saúl Simental, GRICELDA is Primary Nurse. jb4 20:15 John Sánchez PA is PHCP. cp 20:15 Sen Hunter MD is Attending Physician. cp 20:15 Patient has correct armband on for positive identification. Placed in gown. Bed in low jb4 position. Call light in reach. Side rails up X 1. Pulse ox on. NIBP on. 20:30 Inserted saline lock: 20 gauge in left antecubital area, using aseptic technique. Blood jb4 collected. 21:32 CT Stone Protocol In Process Unspecified. EDMS 05 01:03 CT Abd/Pelvis - PO and IV Contrast In Process Unspecified. EDMS 02:10 No provider procedures requiring assistance completed. IV discontinued, intact, jb4 bleeding controlled, No redness/swelling at site. Pressure dressing applied. Administered Medications: 11/07 21:33 Drug: Zofran (Ondansetron) 4 mg Route: IVP; Site: left antecubital; jb4 22:30 Follow up: Response: No adverse reaction; Nausea is decreased jb4 21:35 Drug: NS 0.9% 1000 ml Route: IV; Rate: 1 bolus; Site: left antecubital; jb4 22:35 Follow up: Response: No adverse reaction; IV Status: Completed infusion; IV Intake: jb4 1000ml 21:35 Drug: fentaNYL (PF) 25 mcg {Note: Rass score 0.} Route: IVP; Site: left antecubital; jb4 22:00 Follow up: Response: No adverse reaction; Pain is decreased; RASS: Alert and Calm (0) jb4 22:48 Drug: metroNIDAZOLE 500 mg Volume: 100 ml; Route: IVPB; Infused Over: 30 mins; Site: [facility] left antecubital; 23:18 Follow up: Response: No adverse reaction; IV Status: Completed infusion jb4 22:48 Drug: Ciprofloxacin 500 mg Route: PO; jb4 23:23 Follow up: Response: No adverse reaction jb4 22:49 Drug: Bentyl 20 mg Route: PO; jb4 23:24 Follow up: Response: No adverse reaction jb4 23:38 Drug: fentaNYL (PF) 25 mcg {Note: Rass score 0.} Route: IVP; Site: left antecubital; jb4 11/08 00:00 Follow up: Response: No adverse reaction; Pain is decreased jb4 Intake: 11/07 22:35 IV: 1000ml; Total: 1000ml. jb4 Outcome: 11/08 01:47 Discharge ordered by . pkamena 01:51 Discharge ordered by . pkl 02:10 Discharged to home ambulatory. jb4 02:10 Condition: stable 02:10 Discharge instructions given to patient, Instructed on discharge instructions, follow up and referral plans. Demonstrated understanding of instructions, follow-up care, medications, Prescriptions given X 2. 02:14 Patient left the ED. jb4 Signatures: Dispatcher [employer] EDShe Swift RN RN Sen Kiran MD MD pkl Page, Corey, PA PA cp Bryson, James RN RN jb4 Yolanda Segovia [facility] Corrections: (The following items were deleted from the chart) 11/07 23:55 23:54 Reassessment: Patient appears in no apparent distress at this time. Patient jb4 and/or family updated on plan of care and expected duration. Pain level reassessed. Patient is alert, oriented x 3, equal unlabored respirations, skin warm/dry/pink. jb4 11/08 02:50 02:30 No provider procedures requiring assistance completed. jb4 jb4 02:50 02:30 IV discontinued, intact, bleeding controlled, No redness/swelling at site. jb4 Pressure dressing applied, jb4
[2019-11-09 02:49] VITALS: O2SAT 100
[2019-11-09 02:51] VITALS: TEMP 99.2
[2019-11-09 03:01] VITALS: BP 99/63
--- NOTE | 2019-11-09 17:11 | RAD REPORT ---
EXAM DESCRIPTION: CT - Stone Protocol - 11/09/2019 11:24 am CLINICAL HISTORY: Right flank pain. Right lower quadrant pain. COMPARISON: None. TECHNIQUE: CT scan of the abdomen and pelvis was performed without IV contrast. This exam was perfor med according to our departmental dose-optimization program, which includes automated exposure contro l, adjustment of the mA and/or kV according to patient size and/or use of iterative reconstruction te chnique. FINDINGS: The lung bases are clear. No pleural or pericardial effusions. No hiatal hernia with prior gastric surgery noted. There has been a prior cholecystectomy. The liver, spleen, pancreas, adrenal glands, and kidneys are unremarkable. No hydronephrosis or urinary stones are seen. The pelvic organs are also unremarkable. There is wall thickening of the descending and sigmoid colon extending to the rectum. No evidence of bowel obstruction or inflammation. The appendix is not seen. No intraperitoneal free fluid or free ai r is seen. The aorta is normal in caliber. No acute bony findings are seen. No abnormal body wall hernia. IMPRESSION: 1. No urinary stones or hydronephrosis. 2. Query mild colitis involving the distal colon and rectum. Electronically signed by: Travis Cam MD 11/08/2019 10:00 PM CDT Due to temporary technical issues with the PACS/Fluency reporting system, reports are being signed by the in house radiologist as a courtesy to ensure prompt reporting. The interpreting radiologist is f ully responsible for the content of the report.
--- NOTE | 2019-11-09 17:11 | RAD REPORT ---
EXAM DESCRIPTION: CT - Abdomen Pelvis W Contrast - 11/09/2019 3:24 am CLINICAL HISTORY: The patient is 49 years old and is Female; RLQ abdomen pain TECHNIQUE: Axial computed tomography images of the abdomen and pelvis with intravenous contrast. S agittal and coronal reformatted images were created and reviewed. This CT exam was performed using one or more of the following dose reduction techniques: automated exposure control, adjustment of t he mA and/or kV according to patient size, and/or use of iterative reconstruction technique. COMPARISON: CT of the abdomen and pelvis without contrast November 08, 2019 FINDINGS: LUNG BASES: Unremarkable. No mass. No consolidation. ABDOMEN: LIVER: Unremarkable. No mass. GALLBLADDER AND BILE DUCTS: The gallbladder surgically absent. PANCREAS: No ductal dilation. No mass. SPLEEN: Unremarkable. ADRENALS: Unremarkable. No mass. KIDNEYS AND URETERS: Unremarkable. The kidneys enhance symmetrically. No obstructing renal or ure teral calculus is seen. No hydronephrosis or hydroureter. No perinephric fluid or stranding. STOMACH AND BOWEL: Postsurgical change of the gastric body is present. Oral contrast is present within the stomach and throughout the small bowel which is normal in caliber. A moderate amount stool is present throughout colon. The distal sigmoid colon and rectum are incompletely distended. There i s no surrounding inflammation. There is no mucosal thickening or evidence of bowel obstruction. PELVIS: APPENDIX: The appendix is normal in caliber without surrounding inflammation. BLADDER: The bladder is not well distended. REPRODUCTIVE: Unremarkable as visualized. ABDOMEN and PELVIS: INTRAPERITONEAL SPACE: Unremarkable. No free air. No significant fluid collection. BONES/JOINTS: No acute fracture. SOFT TISSUES: The soft tissues are normal. VASCULATURE: Unremarkable. No abdominal aortic aneurysm. LYMPH NODES: Unremarkable. No enlarged lymph nodes. IMPRESSION: No acute findings on this contrasted CT of the abdomen and pelvis to explain the patien t's symptoms. Electronically signed by: Stephany Holley MD 11/09/2019 1:10 AM CDT Due to temporary technical issues with the PACS/Fluency reporting system, reports are being signed by the in house radiologist as a courtesy to ensure prompt reporting. The interpreting radiologist is f ully responsible for the content of the report.
== END 2019-11-09 02:14 | disposition home or self-care (01) ==
LOC: ER 19:49
DX: N39.0 Urinary tract infection, site not specified (principal); Z88.5 Allergy status to narcotic agent
CPT/HCPCS: 96365; 96361; 87088; 85025; 87086; 80048; 36415; 81025; 80076; 83690; 76377; 74176; 74177; 96375; 99284; Q9967; J3010 ×2; J7030; J2405; 81003; 81015

== ENCOUNTER 2021-06-15 06:42 | Emergency (ER) | payer BC ==
--- OUTSIDE RECORDS SUMMARY | 2021-06-15 06:46 | XMS REPORT | Continuity of Care Document ---
:1970 Author Organization [facility] t Address [address] [place] [address] Care Team Providers Name Role Phone Rima Sunshine MD Attending Clinician [phone] Cirilo Recio Attending Clinician ROSS Attending Clinician Unavailable Nurse, Urgent Care Attending Clinician Unavailable Ross SOW Attending Clinician Lucas PEREZ Attending Clinician UNKNOWN Attending Clinician Unavailable Provider, Urgent Care Attending Clinician Unavailable Unknown Attending Clinician Unavailable Nicki Sandy MD Attending Clinician Payers Payer Name Policy Type Policy Number Effective Date Expiration Date S rodyaron [facility] - [id number] 2016 00:00:00 OUT OF STATE Problems Condition Condition Condition Status Onset Resolution Last Treating Co mments Source Name Details Category Date Date Treatment Clinician Date No known No known Disease Unive rs active active ity of problems problems [facility] Allergies, Adverse Reactions, Alerts Allergy Allergy Status Severity Reaction(s) Onset Inactive Treating Comm ents Source Name Type Date Date Clinician MEPERIDI DRUG Active N/V 2019-0 Univers NE HCL INGREDI 2- ity of 00:00: [address] HYDROCOD DRUG Active N/V 2019-0 Univers ONE-ACET 2-27 ity of AMINOPHE 00:00: [place] N 00 Medical Branch Meperidi Propensi Active Nausea Univer s ne Hcl ty to and/or 2-27 ity of adverse Vomiting 00:00: [place] reaction 00 Medical s Branch Hydrocod Propensi Active Nausea Univer s one-Acet ty to and/or 2-27 ity of aminophe adverse Vomiting 00:00: [place] n reaction 00 [facility] s Branch hydrocod DA Active U 2017-07 [facility] one 07-17 [place] 00:00: [facility] meperidi DA Active U 2017-07 [facility] ne 07-17 [place] 00:00: Orthope 00 dic Hospita l NO KNOWN Drug Active Univers ALLERGIE Class ity of [facility] Social History Social Habit Start Date Stop Date Quantity Comments Source Exposure to Not sure [facility] SARS-CoV-2 (event) [facility] Sex Assigned At [facility] Tobacco use and 2020-05-18 2020-05-18 Never used [facility] exposure 00:00:00 00:00:00 [facility] Smoking Status Start Date Stop Date Source Never smoker [facility] Medications Ordered Filled Start Stop Current Ordering Indication Dosage Frequency Signature Comments Components Source Medication Medication Date Date Medication? Clinician (SIG) Name Name dicyclomine 2019-07- No 20mg 20 mg, Uni vers (BENTYL) 07-19 Intramuscu ity of injection 04:30: 04:30 lar, ONCE, [place] 20 mg 00 :00 1 dose, Medical [facility] 05/18/20 at 2230, Routine maalox:diph 2019-07 No 15mL 15 mL, Uni vers enhydrAMINE 07-19 Oral, ity of :lidocaine 03:45: 02:43 ONCE, 1 Sammy as 2 % viscous 00 :00 dose, Mon Med ical 1:1:1 05/18/20 Branch (FIRST-MOUT at 2145, [facility]) Routine oral suspension 15 mL iohexol 2019-07- No 120mL 120 mL, Unive rs (OMNIPAQUE 07-19 Intravenou it y of 350 02:30: 02:08 s, ONCE, 1 [place] BULK-150 00 :00 dose, Mon Medica l mL) 05/18/20 Branch injection at 2030, 120 mL Routine ondansetron 2019-07- No 4mg 4 mg, Slow Univers (ZOFRAN 07-19 IV Push, ity of (PF)) 02:00: 01:13 ONCE, 1 [place] injection 4 00 :00 dose, Mon Med ical mg 05/18/20 Branch at 2000, BHARTI morpHINE 2019-07- No 4mg 4 mg, Slow Un ananya injection 4 07-19 IV Push, ity of mg 02:00: 01:14 ONCE, 1 [place] 00 :00 dose, Mon Medical 05/18/20 Branch at 2000, STAT NaCl 0.9% 2019-07- No 1000mL at 999 Uni vers (NS) bolus 07-19 mL/hr, ity of infusion 01:00: 03:51 1,000 mL, Sammy as 1,000 mL 00 :00 IV Medical Infusion, Branch ONCE, 1 dose, [facility] 05/18/20 at 1900, BHARTI dicyclomine 2019-07 2020- No [id number] 10mg Take 1 Univers 10 mg 07-1824 capsule by ity of capsule 00:00: 05:59 mouth 4 [place] 00 :00 (four) Medical times Branch daily for 7 days. hydrOXYzine 2020-0 Yes [id number] 25mg Take 1 Univers 25 mg 9-27 tablet by ity of tablet 00:00: mouth [place] 00 every 6 Medical (six) Branch hours as needed for Itching. hydrOXYzine 2020-0 Yes [id number] 25mg Take 1 Univers 25 mg 9-27 tablet by ity of tablet 00:00: mouth [place] 00 every 6 Medical (six) Branch hours as needed for Itching. hydrOXYzine 2020-0 Yes [id number] 25mg Take 1 Univers 25 mg 9-27 tablet by ity of tablet 00:00: mouth [place] 00 every 6 Medical (six) Branch hours as needed for Itching. hydrOXYzine 2020-0 Yes [id number] 25mg Take 1 Univers 25 mg 9-27 tablet by ity of tablet 00:00: mouth [place] 00 every 6 Medical (six) Branch hours as needed for Itching. hydrOXYzine 2020-0 Yes [id number] 25mg Take 1 Univers 25 mg 9-27 tablet by ity of tablet 00:00: mouth [place] 00 every 6 Medical (six) Branch hours as needed for Itching. valACYclovi 2020-0 2020- No [id number] 1g Take 1 Univers r 1 gram 9-27 10-05 tablet by ity o f tablet 00:00: 04:59 mouth 3 [place] 00 :00 (three) Medical times Branch daily for 7 days. valACYclovi 2020-0 2020- No [id number] 1g Take 1 Univers r 1 gram 9-27 10-05 tablet by ity o f tablet 00:00: 04:59 mouth 3 [place] 00 :00 (three) Medical times Branch daily for 7 days. fluticasone 2020-0 Yes [id number] 2{spray Use 2 Univers propionate 2-27 } Sprays in ity of 50 00:00: each [place] mcg/actuati 00 nostril Medic al on nasal daily. Branch spray fluticasone 2020-0 Yes [id number] 2{spray Use 2 Univers propionate 2-27 } Sprays in ity of 50 00:00: each [place] mcg/actuati 00 nostril Medic al on nasal daily. Branch spray bromphenira 2020-0 Yes [id number] 5mL Take 5 mL Univers mine-pseudo 2-27 by mouth ity of ephedrine-d 00:00: every 6 Sammy as extromethor 00 (six) Medical howard 1-15-5 hours as Bran ch mg/5 mL needed for elixer Congestion /Allergies . benzonatate 2020-0 Yes [id number] 100mg Take 1 Univers (TESSALON 2-27 capsule by ity of PERLES) 100 00:00: mouth 3 Sammy as mg capsule 00 (three) Medica l times Branch daily as needed for Cough. bromphenira 2020-0 Yes [id number] 5mL Take 5 mL Univers mine-pseudo 2-27 by mouth ity of ephedrine-d 00:00: every 6 Sam[place] as extromethor 00 (six) Medical howard 1-15-5 hours as Bran ch mg/5 mL needed for elixer Congestion /Allergies . benzonatate 2020-0 Yes [id number] 100mg Take 1 Univers (TESSALON 2-27 capsule by ity of PERLES) 100 00:00: mouth 3 Sammy as mg capsule 00 (three) Medica l times Branch daily as needed for Cough. fluticasone 2020-0 Yes [id number] 2{spray Use 2 Univers propionate 2-27 } Sprays in ity of 50 00:00: each [place] mcg/actuati 00 nostril Medic al on nasal daily. Branch spray bromphenira 2020-0 Yes [id number] 5mL Take 5 mL Univers mine-pseudo 2-27 by mouth ity of ephedrine-d 00:00: every 6 Sammy as extromethor 00 (six) Medical howard 1-15-5 hours as Bran ch mg/5 mL needed for elixer Congestion /Allergies . benzonatate 2020-0 Yes [id number] 100mg Take 1 Univers (TESSALON 2-27 capsule by ity of PERLES) 100 00:00: mouth 3 Sammy as mg capsule 00 (three) Medica l times Branch daily as needed for Cough. fluticasone 2020-0 Yes [id number] 2{spray Use 2 Univers propionate 2-27 } Sprays in ity of 50 00:00: each [place] mcg/actuati 00 nostril Medic al on nasal daily. Branch spray bromphenira 2020-0 Yes [id number] 5mL Take 5 mL Univers mine-pseudo 2-27 by mouth ity of ephedrine-d 00:00: every 6 Sammy as extromethor 00 (six) Medical howard 1-15-5 hours as Bran ch mg/5 mL needed for elixer Congestion /Allergies . benzonatate 2020-0 Yes [id number] 100mg Take 1 Univers (TESSALON 2-27 capsule by ity of PERLES) 100 00:00: mouth 3 Sammy as mg capsule 00 (three) Medica l times Branch daily as needed for Cough. fluticasone 2020-0 Yes [id number] 2{spray Use 2 Univers propionate 2-27 } Sprays in ity of 50 00:00: each [place] mcg/actuati 00 nostril Medic al on nasal daily. Branch spray bromphenira 2020-0 Yes [id number] 5mL Take 5 mL Univers mine-pseudo 2-27 by mouth ity of ephedrine-d 00:00: every 6 [place]my as extromethor 00 (six) Medical howard 1-15-5 hours as Bran ch mg/5 mL needed for elixer Congestion /Allergies . benzonatate 2020-0 Yes [id number] 100mg Take 1 Univers (TESSALON 2-27 capsule by ity of PERLES) 100 00:00: mouth 3 Sammy as mg capsule 00 (three) Medica l times Branch daily as needed for Cough. fluticasone 2020-0 Yes [id number] 2{spray Use 2 Univers propionate 2-27 } Sprays in ity of 50 00:00: each [place] mcg/actuati 00 nostril Medic al on nasal daily. Branch spray bromphenira 2020-0 Yes [id number] 5mL Take 5 mL Univers mine-pseudo 2-27 by mouth ity of ephedrine-d 00:00: every 6 [place]my as extromethor 00 (six) Medical howard 1-15-5 hours as Bran ch mg/5 mL needed for elixer Congestion /Allergies . benzonatate 2020-0 Yes [id number] 100mg Take 1 Univers (TESSALON 2-27 capsule by Aidee) 100 00:00: mouth 3 [place] as mg capsule 00 (three) Medica l times Branch daily as needed for Cough. LORazepam 1 2019- Yes TAKE 1 1 Univers mg tablet 2-14 1/2 TABLET ity of 00:00: BY MOUTH [place] 00 ONCE A DAY Medical NEEDED Branch LORazepam 1 2019- Yes TAKE 1 1 Univers mg tablet 2-14 1/2 TABLET ity of 00:00: BY MOUTH [place] 00 ONCE A DAY Medical NEEDED Branch LORazepam 1 2019-0 Yes TAKE 1 1 Univers mg tablet 2-14 1/2 TABLET ity of 00:00: BY MOUTH [place] 00 ONCE A DAY Medical NEEDED Branch LORazepam 1 2019-0 Yes TAKE 1 1 Univers mg tablet 2-14 1/2 TABLET ity of 00:00: BY MOUTH [place] 00 ONCE A DAY Medical NEEDED Branch LORazepam 1 2019-0 Yes TAKE 1 1 Univers mg tablet 2-14 1/2 TABLET ity of 00:00: BY MOUTH [place] 00 ONCE A DAY Medical NEEDED Branch LORazepam 1 2019-0 Yes TAKE 1 1 Univers mg tablet 2-14 1/2 TABLET ity of 00:00: BY MOUTH [place] 00 ONCE A DAY Medical NEEDED Branch Vital Signs Vital Name Observation Time Observation Value Comments Source Systolic blood 2020-05-19 03:10:00 100 mm[Hg] Univer sity of pressure [facility] Diastolic blood 2020-05-19 03:10:00 68 mm[Hg] Unive rsity of [email or web address] Heart rate 2020-05-19 03:10:00 63 /min Universi ty of [place] [facility] Respiratory rate 2020-05-19 03:10:00 20 /min Univ ersity of [place] [facility] Oxygen saturation in 2020-05-19 03:10:00 100 /min University of Arterial blood by [place] [employer] berenice Pulse oximetry Branch Body temperature 2020-05-18 23:58:00 36.67 [place] [facility] ersity of [place] [facility] Body height 2020-05-18 23:58:00 160 cm Universi ty of [place] [facility] Body weight 2020-05-18 23:58:00 79.379 kg Universi ty of [place] [facility] BMI 2020-05-18 23:58:00 31.00 kg/m2 Universi ty of [place] [facility] Systolic blood 2020-05-19 03:10:00 100 mm[Hg] Univer sity of pressure [place] [facility] Diastolic blood 2020-05-19 03:10:00 68 mm[Hg] Unive rsity of pressure [place] [facility] Heart rate 2020-05-19 03:10:00 63 /min Universi ty of [place] [facility] Respiratory rate 2020-05-19 03:10:00 20 /min Univ ersity of [place] [facility] Oxygen saturation in 2020-05-19 03:10:00 100 /min University of Arterial blood by [place] [employer] berenice Pulse oximetry Branch Body temperature 2020-05-18 23:58:00 36.67 [place] Univ ersity of [place] [facility] Body height 2020-05-18 23:58:00 160 cm Universi ty of [place] [facility] Body weight 2020-05-18 23:58:00 79.379 kg Universi ty of [place] [facility] BMI 2020-05-18 23:58:00 31.00 kg/m2 Universi ty of [place] [facility] Respiratory rate 2020-05-16 00:30:00 17 /min Univ ersity of [place] [facility] Body height 2020-05-16 00:30:00 160 cm Universi ty of [place] [facility] Body weight 2020-05-16 00:30:00 79.379 kg Universi ty of [place] [facility] BMI 2020-05-16 00:30:00 31.00 kg/m2 Universi ty of [place] [facility] Oxygen saturation in 2020-05-16 00:30:00 98 /min University of Arterial blood by [place] Medi berenice Pulse oximetry Branch Systolic blood 2020-05-16 00:30:00 102 mm[Hg] Univer sity of pressure [place] [facility] Diastolic blood 2020-05-16 00:30:00 54 mm[Hg] Unive rsity of pressure [place] [facility] Heart rate 2020-05-16 00:30:00 74 /min Universi ty of [place] [facility] Body temperature 2020-05-16 00:30:00 36.89 [place] Univ ersity of [facility] Branch Systolic blood 2020-03-29 22:51:00 125 mm[Hg] Univer sity of pressure [place] [facility] Diastolic blood 2020-03-29 22:51:00 82 mm[Hg] Unive rsity of pressure [facility] Branch Heart rate 2020-03-29 22:51:00 84 /min Universi ty of [facility] Branch Body temperature 2020-03-29 22:51:00 36.89 [place] Univ ersity of [facility] Branch Respiratory rate 2020-03-29 22:51:00 18 /min Univ ersity of [facility] Body height 2020-03-29 22:51:00 160 cm Universi ty of [facility] Body weight 2020-03-29 22:51:00 79.379 kg Universi ty of [place] [facility] BMI 2020-03-29 22:51:00 31.00 kg/m2 Universi ty of [facility] Oxygen saturation in 2020-03-29 22:51:00 98 /min University Arterial blood by [facility] Pulse oximetry Branch Systolic blood 2020-03-29 22:51:00 125 mm[Hg] Univer sity of pressure [facility] Branch Diastolic blood 2020-03-29 22:51:00 82 mm[Hg] Unive rsity of pressure [facility] Branch Heart rate 2020-03-29 22:51:00 84 /min Universi ty [facility] [place] [facility] Body temperature 2020-03-29 22:51:00 36.89 [place] Univ ersity of [facility] Respiratory rate 2020-03-29 22:51:00 18 /min Univ ersity of [facility] Body height 2020-03-29 22:51:00 160 cm Universi ty [facility] [place] [facility] Body weight 2020-03-29 22:51:00 79.379 kg Universi ty of [place] [facility] BMI 2020-03-29 22:51:00 31.00 kg/m2 Universi ty of [facility] Oxygen saturation in 2020-03-29 22:51:00 98 /min University of Arterial blood by [facility] Pulse oximetry Branch Systolic blood 2019-08-30 01:09:00 110 mm[Hg] Univer sity of pressure [place] [facility] Diastolic blood 2019-08-30 01:09:00 75 mm[Hg] Unive rsity of pressure [facility] Branch Heart rate 2019-08-30 01:09:00 65 /min Universi ty of [facility] Body temperature 2019-08-30 01:09:00 36.56 [place] Univ ersity of [place] [facility] Respiratory rate 2019-08-30 01:09:00 17 /min Univ ersity of [facility] Branch Body height 2019-08-30 01:09:00 160 cm Universi ty [facility] [place] [facility] Body weight 2019-08-30 01:09:00 80.105 kg Universi ty [facility] [place] [facility] BMI 2019-08-30 01:09:00 31.28 kg/m2 Universi ty of [facility] Branch Oxygen saturation in 2019-08-30 01:09:00 99 /min University of Arterial blood by [facility] Pulse oximetry Branch Systolic blood 2019-08-30 01:09:00 110 mm[Hg] Univer sity of pressure [facility] Branch Diastolic blood 2019-08-30 01:09:00 75 mm[Hg] Unive rsity of pressure [facility] Branch Heart rate 2019-08-30 01:09:00 65 /min Universi ty of [facility] Body temperature 2019-08-30 01:09:00 36.56 [place] Univ ersity of [facility] Branch Respiratory rate 2019-08-30 01:09:00 17 /min Univ ersity of [facility] Branch Body height 2019-08-30 01:09:00 160 cm [facility]i ty [facility] [place] [facility] Body weight 2019-08-30 01:09:00 80.105 kg Universi ty [facility] [place] [facility] BMI 2019-08-30 01:09:00 31.28 kg/m2 Universi ty of [facility] Branch Oxygen saturation in 2019-08-30 01:09:00 99 /min University of Arterial blood by [facility] Pulse oximetry Branch Procedures Procedure Date / Time Performed Performing Clinician Renuka e CT ABDOMEN PELVIS W 2020-05-19 02:16:43 Cirilo Posadas [facility] ersity of [place] CONTRAST Medical Branch LIPASE 2020-05-19 01:12:00 Cirilo Posadas [facility] COMP. METABOLIC PANEL 2020-05-19 01:12:00 [id number] CBC WITH DIFF 2020-05-19 01:12:00 Cirilo Posadas [facility] URINALYSIS 2020-05-19 01:12:00 Cirilo Posadas [facility] CONSENT/REFUSAL FOR 2020-05-18 23:48:50 Doctor Unassigned, [facility] AND Name [facility] TREATMENT POCT FLU A AND B 2019-08-30 01:40:00 Jerald Sandy [facility] ([facility]) [facility] Encounters Start End Encounter Admission Attending Care Care Encounter Source Date/Time Date/Time Type Type Clinicians Facility Department ID 2021-05-01 Emergency [facility] [id number] Univers 05:55:18 ity of [facility] 2020-07-21 2020-07-21 Refapril Henson [facility] [id number] Univers 00:00:00 00:00:00 Bjorn, PRIMARY [id number] i ty [facility] [id number] [facility] Are[facility] [place] [facility] [phone] Ms dical 044 Branch 2020-05-18 2020-05-18 Emergency [facility] [id number] 18:08:00 22:50:00 Cirilo Manzo [id number] [place] [id number] [place] [phone] [facility] 2020-05-18 2020-05-18 Emergency [facility] [id number] Univers 18:08:00 22:50:00 Cirilo Manzo [id number] ity of [place] [id number] [facility] Are[facility] s [place] [phone] [facility] 084 Branch 2020-05-15 2020-05-15 Outpatient R [facility] [id number] Univers 19:40:00 19:40:00 [id number] [facility] [place] 2020-05-15 2020-05-15 Outpatient R ROSS [facility] [id number] Univers 19:40:00 19:40:00 KAMAR y [facility] 2020-05-15 2020-05-15 Urgent Nurse, [facility] [id number] Univers 18:24:11 18:44:11 Care Kamar [facility] [id number] ity of [place] [id number] Sammy as Professio [phone] [facility] [address] [place] [address] 2020-03-30 2020-03-30 Telephone Lucas [facility] [id number] 00:00:00 00:00:00 [facility] [id number] Surgical [id number] Specialti [phone] es 370 [place] 2020-03-30 2020-03-30 [place] [facility] [id number] Univers 00:00:00 00:00:00 [facility] [id number] it y of Surgical 4.2.7.2.686 Sammy as Specialti [phone] [facility] 370 [facility] 2020-03-29 2020-03-29 Outpatient R [facility] [id number] Univers 19:40:00 19:40:00 [id number] [facility] 2020-03-29 2020-03-29 Outpatient R UNKNOWN, [facility] [id number] Univers 19:40:00 19:40:00 ATTENDING ity [facility] 2020-03-29 2020-03-29 Urgent Provider, [facility] [id number] 17:46:23 19:16:02 Care [facility] [id number] Care [place] [id number] Professio [phone] [place] [address] [address] 2020-03-29 2020-03-29 Urgent Provider, [facility] [id number] Univers 17:46:23 19:16:02 Care Unknown, Attending Health [id number] ity of [place] [id number] Sammy as Professio [phone] Me dical nal 044 Branch [address] One 2019-08-29 2019-08-29 Urgent [facility] [id number] 18:37:56 19:56:33 Care [facility] [id number] [facility] Surgical [id number] Specialti [id number] es 370 [place] 2019-08-29 2019-08-29 Urgent [facility]o [place], [facility] [id number] Univers 18:37:56 19:56:33 Care Unknown, Attending [facility] [id number] ity Jerald Sandy Surgical [id number] [place] Specialti [phone] Ms dical es 370 [facility] 2019-08-29 2019-08-29 Outpatient R UNKNOWN, [facility] [id number] Univers 19:00:00 19:00:00 ATTENDING ity [facility] Results Test Test Test Results Result Source Description Time Comments Comments CT ABDOMEN 2020-05-03. No acute University o f PELVIS W 17 inflammatory process in [place] Medical CONTRAST 03:07:58 the abdomen or pelvis.2. Branch Status post cholecystectomy. RL: [id number] End of Report ORDERING PROVIDER: CIRILO POSADAS HISTORY: Abd pain, diverticulitis or appendicitis suspected EXAM: CT abdomen and pelvis TECHNIQUE: Multiple contiguous axial CT images were obtained from the lungbases through the lower pelvis following intravenous contrastadministration. Coronal and sagittal reformatted images were generated andreviewed. CT radiation dose parameters performed according to ALARA. COMPARISON: None. FINDINGS: The imaged lung bases are essentially clear. There is no pleural orpericardial effusion. The liver, spleen, pancreas, and adrenal glands are unremarkable. Thepatient is status post cholecystectomy. There is mild prominence of thebile ducts to the expected degree after cholecystectomy. The kidneys aresymmetric in size and enhancement with no hydronephrosis. Abdominal aortais normal caliber. No abdominal or retroperitoneal adenopathy. There are no dilated bowel loops to suggest intestinal obstruction. Thereis no evidence of acute mesenteric or bowel wall inflammation. There is noevidence of appendicitis. The urinary bladder is unremarkable. The uterus and adnexa are withinnormal limits. There is no pelvic free fluid. No inguinal or pelvicadenopathy. No acute osseous abnormality is identified. [facility], Radiant Results Inft User - 05/18/2020 9:09 PM CSTORDERING PROVIDER: CIRILO Caban IBIKUNLEHISTORY: Abd pain, diverticulitis or appendicitis suspected EXAM: CT abdomen and pelvisTECHNIQUE: Multiple contiguous axial CT images were obtained from the lungbases through the lower pelvis following intravenous contrastadministration. Coronal and sagittal reformatted images were generated andreviewed. CT radiation dose parameters performed according to ALARA.COMPARISON: None.FINDINGS:The imaged lung bases are essentially clear. There is no pleural orpericardial effusion.The liver, spleen, pancreas, and adrenal glands are unremarkable. Thepatient is status post cholecystectomy. There is mild prominence of thebile ducts to the expected degree after cholecystectomy. The kidneys aresymmetric in size and enhancement with no hydronephrosis. Abdominal aortais normal caliber. No abdominal or retroperitoneal adenopathy.There are no dilated bowel loops to suggest intestinal obstruction. Thereis no evidence of acute mesenteric or bowel wall inflammation. There is noevidence of appendicitis.The urinary bladder is unremarkable. The uterus and adnexa are withinnormal limits. There is no pelvic free fluid. No inguinal or pelvicadenopathy. No acute osseous abnormality is identified.IMPRESSION1. No acute inflammatory process in the abdomen or pelvis.2. Status post cholecystectomy.RL: [id number] of Report Urinalysis 2020-05-19 01:55:00 Test Item Value Reference Range Interpretation Comme nts APPEARANCE (test code = Clear Clear 3513347294) COLOR (test code = 3674234859) Straw Yellow A PH (test code = 7832554160) 4.8-8.0 SP GRAVITY (test code = 1.003-1.030 6746079420) GLU U QUAL (test code = Normal Normal 8123741088) BLOOD (test code = 6958587978) Negative Negative KETONES (test code = 5649905623) Negative Negative PROTEIN (test code = 2887-8) Negative Negative UROBILIN (test code = Normal Normal 4150671602) BILIRUBIN (test code = Negative Negative 2424479596) NITRITE (test code = 2299940275) Negative Negative LEUK AUDI (test code = Negative Negative 2513306321) RBC/HPF (test code = 7623428493) See_Comment [Automated message] The system which ge nerated this result transmit jovita reference range: 0 - 3 HP F. The reference range was not used to interpret th is result as normal/abnormal . WBC/HPF (test code = 0120749513) <1 See_Comment [Automated message] The system which ge nerated this result transmit jovita reference range: 0 - 5 HP F. The reference range was not used to interpret th is result as normal/abnormal . BACTERIA (test code = Few Negative A 1315378750) MUCOUS (test code = 2138561686) Slight Negative LPF A SQ EPITH (test code = HPF 8461949074) Lab Interpretation (test code = Abnormal 63686-4) [facility]. METABOLIC PANEL (50191)2020-05-19 01:32:00 Test Item Value Reference Range Interpretation Comments NA (test code = 140 mmol/L 135-145 1332928247) K (test code = 3.6 mmol/L 3.5-5 3303818612) CL (test code = 104 mmol/L 98-108 8108073346) CO2 TOTAL (test code = 30 mmol/L 23-31 9203198443) AGAP (test code = 2-16 9421884320) BUN (test code = 12 mg/dL 7-23 5044393115) GLUCOSE (test code = 92 mg/dL 70-110 2114897201) CREATININE (test code 0.71 mg/dL 0.5-1.04 = 1440390063) TOTAL BILI (test code 0.4 mg/dL 0.1-1.1 = 1054265443) CALCIUM (test code = 9.8 mg/dL 8.6-10.6 3460385512) T PROTEIN (test code = 7.4 g/dL 6.3-8.2 6932907294) ALBUMIN (test code = 4.4 g/dL 3.5-5 6968887127) ALK PHOS (test code = 76 U/L 34-122 7014775170) ALTv (test code = 16 U/L 5-35 1742-6) AST(SGOT) (test code = 23 U/L 13-40 8078785959) eGFR Calculation mL/min/1.73m2 (Non-) (test code = 7686362447) eGFR Calculation mL/min/1.73m2 () (test code = 0241934903) LORI (test code = LORI) Association of Glomerular Filtration Rate (GFR) and Staging of Kidney Disease* + -+ + ---+| GFR (mL/min/1.73 m2) ?| With Kidney Damage ?| ?Without Kidney Damage+ -------+ ------+ ---------+| ?>90 ?| ?Stage one ?| ? Normal ?+ --+ -+ ----+| ?60-89 ?| ?Stage two ?| ? Decreased GFR ? + -+ + ---+| ?30-59 ?| ?Stage three ?| ? Stage three ? + -+ + ---+| ?15-29 ?| ?Stage four ? | ? Stage four ?+ --+ -+ ----+| ?<15 (or dialysis) ? ?| ?Stage five ? | ? Stage five ?+ --+ -+ ----+ *Each stage assumes the associated GFR level has been in effect for at least three months. ?Stages 1 to 5, with or without kidney disease, indicate chronic kidney disease. Notes: Determination of stages one and two (with eGFR >59mL/min/1.73 m2) requires estimation of kidney damage for at least three months as defined by structural or functional abnormalities of the kidney, manifested by either:Pathological abnormalities or Markers of kidney damage (including abnormalities in the composition of the blood or urine or abnormalities in imaging tests). [id number] 01:32:00 Test Item Value Reference Range Interpretation Comments LIPASE (test code = 6317909284) 90 U/L 0-220 Lab Interpretation (test code = Normal 74302-7) [facility] with [id number] 01:23:00 Test Item Value Reference Range Interpretation Comments WBC (test code = See_Comment [Automated message] 6690-2) The system [employer] generated this result transmitted ref erence range: 4.30 - 1 1.10 10*3/?L. The re ference range was not u sed to interpret this result as normal/abnor mal. RBC (test code = See_Comment [Automated message] 708-8) The system [employer] generated this result transmitted ref erence range: 3.93 - 5 .25 10*6/?L. The re ference range was not u sed to interpret this result as normal/abnor mal. HGB (test code = 12.7 g/dL 11.6-15 718-7) HCT (test code = 38.9 % 35.7-45.2 4544-3) MCV (test code = 92.0 fL 80.6-95.5 787-2) MCH (test code = 30.0 pg 25.9-32.8 785-6) MCHC (test code = 32.6 g/dL 31.6-35.1 786-4) RDW-SD (test code 44.0 fL 39-49.9 = 29888-6) RDW-CV (test code 13.0 % 12-15.5 = 788-0) PLT (test code = See_Comment [Automated message] 627-3) The system [employer] generated this result transmitted ref erence range: 166 - 35 8 10*3/?L. The re ference range was not u sed to interpret this result as normal/abnor mal. MPV (test code = 9.5 fL 9.5-12.9 98595-8) NRBC/100 WBC (test See_Comment [Automat ed message] code = 7398988065) The syste m which generated this result transmitted ref erence range: 0.0 - 10 .0 /100 WBCs. The refer ence range was not u sed to interpret this result as normal/abnor mal. NRBC x10^3 (test <0.01 See_Comment [Automated message] code = 9527610062) The syste m which generated this result transmitted ref erence range: 10*3/?L. The reference range was not used to interpr et this result as normal/abnormal . GRAN MAT (NEUT) % 46.2 % (test code = 609-8) IMM GRAN % (test 0.20 % code = 9251105028) LYMPH % (test code 44.9 % = 736-9) MONO % (test code 6.6 % = 5905-5) EOS % (test code = 1.6 % 713-8) BASO % (test code 0.5 % = 706-2) GRAN MAT 2.61 10*3/uL 1.88-7.09 x10^3(ANC) (test code = 9279829950) IMM GRAN x10^3 <0.03 0-0.06 (test code = 7748316358) LYMPH x10^3 (test 2.53 10*3/uL 1.32-3.29 code = 731-0) MONO x10^3 (test 0.37 10*3/uL 0.33-0.92 code = 742-7) EOS x10^3 (test 0.09 10*3/uL 0.03-0.39 code = 711-2) BASO x10^3 (test 0.03 10*3/uL 0.01-0.07 code = 704-7) [facility])2019-08-30 01:50:00 Test Item Value Reference Range Interpretation Comments POCT INFLUENZA A (test code = negative Negative - Negative 3840) POCT INFLUENZA B (test code = negative Negative - Negative 3841) Lab Interpretation (test code = Normal 63606-8) [facility]"
[2021-06-15 08:28] LABS: SARS-COV-2 RT PCR NEGATIVE (NEGATIVE)
[2021-06-15] MEDS ORDERED: LEVALBUTEROL 1.25 MG/3 ML NEB ONE (08:55)
--- NOTE | 2021-06-15 09:25 | RAD REPORT ---
EXAM DESCRIPTION: RAD - Chest Single View - 06/15/2021 7:38 am CLINICAL HISTORY: cough, fever COMPARISON: April 2016 TECHNIQUE: AP portable chest image was obtained 06/15/2021 7:38 am . FINDINGS: No peripheral mass, consolidation or failure finding. Interstitial pattern is not clearly different when adjusting for technique and inspiratory differences. Trachea is midline. Heart and vasculature are normal. No measurable pleural effusion and no pneumotho rax. No acute bony abnormality seen. No acute aortic findings suspected. IMPRESSION: No acute cardiopulmonary process. No significant change from comparison study.
--- NOTE | 2021-06-15 10:52 | ER ---
Nurse's Notes [facility] Name: Kelley Carlos Age: 51 yrs Sex: Female : 1970 Arrival Date: 06/15/2021 Time: 06:47 Bed 17 Private MD: Diagnosis: Influenza Presentation: 06/15 07:01 Chief complaint: Patient states: pt reports fls x 1wk with cough. pain to back this am. 6 pt currently on amoxicillin x 4 days but s/s not any better. Coronavirus screen: Client denies travel out of the [place] in the last 14 days. Ebola Screen: No symptoms or risks identified at this time. Initial Sepsis Screen: Does the patient meet any 2 criteria? No. Patient's initial sepsis screen is negative. Does the patient have a suspected source of infection? No. Patient's initial sepsis screen is negative. Risk Assessment: Do you want to hurt yourself or someone else? Patient reports no desire to harm self or others. Onset of symptoms was June 09, 2021. 07:01 Method Of Arrival: Ambulatory [facility] 07:01 Acuity: DRAKE [address] [facility] Triage Assessment: 07:04 General: Appears in no apparent distress. Behavior is calm, cooperative. Pain: [facility] Complains of pain in left scapular area, right scapular area, left subscapular area and right subscapular area. EENT: Reports nasal congestion. Historical: - Immunization history:: Client reports having NOT received the Covid vaccine. - Social history:: Smoking status: Patient denies any tobacco usage or history of. Screenin:49 Abuse screen: Denies threats or abuse. Nutritional screening: No deficits noted. ap3 Tuberculosis screening: No symptoms or risk factors identified. Fall Risk None identified. Assessment: 07:48 General: Appears in no apparent distress. uncomfortable, Behavior is calm, cooperative, ap3 appropriate for age, Reports chills for fever for feeling ill for fatigue for. Pain: Complains of pain in generalized body aches and pains. Neuro: Level of Consciousness is awake, alert, obeys commands, Oriented to person, place, time, situation, Appropriate for age Speech is normal. Respiratory: Reports cough that is pain with cough Airway is patent. 09:05 Reassessment: patient educated on deep breathing exercises. No incentive spirometer is ap3 available at this time. 10:37 Reassessment: provider at the bedside giving patient update on test results. ap3 Vital Signs: 07:01 BP 133 / 73; Pulse 71; Resp 18; Temp 97.3; Pulse Ox 98% on R/A; Weight 79.38 kg; Height [facility] 5 ft. 3 in. (160.02 cm); Pain 8/10; 09:46 BP 101 / 60; Pulse 72; Resp 18; Pulse Ox 100% ; galindo 11:10 BP 101 / 64; Pulse 68; Pulse Ox 100% on R/A; ss 07:01 Body Mass Index 31.00 (79.38 kg, 160.02 cm) [facility] ED Course: 06:47 Patient arrived in ED. 06:49 Jaspreet Christian PA is PHCP. [facility] 06:49 John Araya MD is Attending Physician. [facility] 07:04 Triage completed. 6 07:33 Strep Sent. 5 07:33 COVID swab sent to lab. Flu and/or RSV swab sent to lab. Strep swab sent to lab. 5 07:33 Patient has correct armband on for positive identification. Bed in low position. [facility]. Adult w/ patient. Pulse ox on. NIBP on. 07:38 Chest Single View XRAY In Process Unspecified. EDMS 07:39 Megan Hernandez, RN is Primary Nurse. ap3 07:49 Arm band placed on right wrist. ap3 08:14 Throat Culture Sent. mh5 08:14 COVID-19/FLU A+B Sent. 5 11:16 No provider procedures requiring assistance completed. Patient did not have IV access ss during this emergency room visit. Administered Medications: 09:11 Drug: Xopenex (levalbuterol) (3) 1.25 mg Route: Inhalation; ap3 Outcome: 10:52 Discharge ordered by . edyta 11:16 Discharged to home ambulatory. ss 11:16 Condition: good 11:16 Discharge instructions given to patient, family, Instructed on discharge instructions, follow up and referral plans. medication usage, Demonstrated understanding of instructions, follow-up care, medications, Prescriptions given X 2. 11:16 Patient left the ED. ss Signatures: Dispatcher [employer] EDMS Jaspreet Christian PA PA jmm Smirch, Shelby RN RN Octavia [facility] Megan Hernandez RN RN ap3 Marsh, Wendy wm Hastedt, Jennifer, RN RN 6 Kristy Kaur Corrections: (The following items were deleted from the chart) 07:04 07:04 PMHx: Anxiety; [place] [address] 07:04 07:04 PMHx: HYPOGLYCEMIA; [place] [address] 07:04 07:04 PMHx: TIA; [place] [address] 07:47 07:33 SARS-COV-2 RT PCR+MOL.LAB.BRZ drawn and sent. [facility]AR 07:48 07:33 Influenza Screen (A \T\ B)+BA.LAB.BRZ drawn and sent. [address]
--- NOTE | 2021-06-15 10:52 | EDPHYS ---
Physician Documentation [facility] Name: Kelley Carlos Age: 51 yrs Sex: Female : 1970 Arrival Date: 06/15/2021 Time: 06:47 Bed 17 Private MD: ED Physician John Araya HPI: 06/15 09:33 This 51 yrs old Female presents to ER via Ambulatory with complaints of Nasal jmm Congestion, Nasal Drainage, Cough, Ear Pain. 09:33 Onset: The symptoms/episode began/occurred gradually. Modifying factors: The symptoms jmm are alleviated by nothing, the symptoms are aggravated by nothing. Is a 51-year-old female that presents emerged department with cough congestion and ear pain beginning approximately 10 days ago. had similar symptoms but is currently recovered. Complains of subjective fever. Prescribed amoxicillin by PCP 4 days ago without any relief of symptoms.. Historical: - Immunization history:: Client reports having NOT received the Covid vaccine. - Social history:: Smoking status: Patient denies any tobacco usage or history of. ROS: 09:33 Constitutional: Positive for body aches, chills. jmm 09:33 Cardiovascular: Positive for chest pain, with cough. 09:33 Respiratory: Positive for cough. 09:33 All other systems are negative. Exam: 09:33 Constitutional: This is a well developed, well nourished patient who is awake, alert, jmm and in no acute distress. Head/Face: atraumatic. Eyes: EOMI, no conjunctival erythema appreciated Neck: Trachea midline, Supple 09:33 Cardiovascular: Regular rate and rhythm. No edema appreciated Respiratory: Normal respirations, no respiratory distress appreciated Abdomen/GI: Non distended, soft Back: Normal ROM Skin: General appearance color normal MS/ Extremity: Moves all extremities, no obvious deformities appreciated, no edema noted to the lower extremities Neuro: Awake and alert, normal gait Psych: Behavior is normal, Mood is normal, Patient is cooperative and pleasant 09:33 ENT: TM's: erythema, that is mild, on the right. Vital Signs: 07:01 BP 133 / 73; Pulse 71; Resp 18; Temp 97.3; Pulse Ox 98% on R/A; Weight 79.38 kg; Height jh6 5 ft. 3 in. (160.02 cm); Pain 8/10; 09:46 BP 101 / 60; Pulse 72; Resp 18; Pulse Ox 100% ; galindo 11:10 BP 101 / 64; Pulse 68; Pulse Ox 100% on R/A; ss 07:01 Body Mass Index 31.00 (79.38 kg, 160.02 cm) 6 MDM: 08:19 Patient medically screened. [facility] 10:51 Data reviewed: vital signs, nurses notes. Counseling: I had a detailed discussion with kee the patient and/or guardian regarding: the historical points, exam findings, and any diagnostic results supporting the discharge/admit diagnosis, lab results, radiology results, the need for outpatient follow up, to return to the emergency department if symptoms worsen or persist or if there are any questions or concerns that arise at home. ED course: Patient is alert nontoxic in appearance in the ED. No signs of respiratory distress. I discussed with the patient return precautions. Patient has been understood and agrees to plan of care.. 06/15 07:08 Order name: Strep; Complete Time: 08:19 [facility] 06/15 07:08 Order name: Chest Single View XRAY; Complete Time: 09:26 [facility] 06/15 07:47 Order name: COVID-19/FLU A+B; Complete Time: 10:42 EDMS 06/15 08:07 Order name: Throat Culture EDWY Administered Medications: 09:11 Drug: Xopenex (levalbuterol) (3) 1.25 mg Route: Inhalation; ap3 Disposition: 12:55 Co-signature as Attending Physician, John Araya MD. I agree with the assessment and adilson plan of care. Disposition Summary: 06/15/21 10:52 Discharge Ordered Location: Home [facility] Condition: Stable [facility] Diagnosis - Influenza [facility] Followup: [facility] - With: Private Physician - When: 2 - 3 days - Reason: Recheck today's complaints, Continuance of care, Re-evaluation by your physician Discharge Instructions: - Discharge Summary Sheet [facility] - Influenza, Adult [facility] Forms: - Medication Reconciliation Form [facility] - Thank You Letter [facility] - Antibiotic Education [facility] - Prescription Opioid Use [facility] Prescriptions: - Albuterol Sulfate 2.5 mg /3 mL (0.083 %) Inhalation Solution for Nebulization - inhale 1 unit by NEBULIZATION route every 8 hours As needed; 1 box; Refills: 0, jmm Product Selection Permitted - promethazine-DM - take 5 milliliter by ORAL route every 4-6 hours; 200 milliliter; Refills: 0, jmm Product Selection Permitted Signatures: Dispatcher [employer] EDMS John Araya MD MD cha Mickail, Joel, PA PA jmm Prokisch, Amanda, RN RN ap3 Pam Hawk RN RN jh6 Corrections: (The following items were deleted from the chart) 07:04 07:04 PMHx: Anxiety; [place] [address] 07:04 07:04 PMHx: HYPOGLYCEMIA; [place] [address] 07:04 07:04 PMHx: TIA; [place] [address] 07:47 07:08 SARS-COV-2 RT PCR+MOL.LAB.BRZ ordered. EDMS EDMS 07:48 07:08 Influenza Screen (A \T\ B)+BA.LAB.BRZ ordered. EDMS EDMS
[2021-06-15 11:26] VITALS: TEMP 97.3
[2021-06-15 11:28] VITALS: BP 101/60; O2SAT 100
== END 2021-06-15 11:16 | disposition home or self-care (01) ==
LOC: ER 06:42
DX: J11.1 Influenza due to unidentified influenza virus with other respiratory manifestations (principal); Z20.822 Contact with and (suspected) exposure to COVID-19
CPT/HCPCS: 87070; 87081; 0240U; 71045; 99284